=== PATIENT | female | born 1995 | race Caucasian/White ===

== ENCOUNTER 2024-12-17 11:49 | Emergency (ER) | payer SELFPAY ==
[~2024-12-17] VITALS: Ht 175.3 cm; Wt 68.0 kg
[2024-12-17 12:46] VITALS: PULSE 98; RESP 20; TEMP 98
[2024-12-17 13:15] LABS: BASOPHILS % 0.5 % (0.0-1.0); EOSINOPHILS % 0.6 % (0.0-6.0); LYMPHOCYTES % 23.4 % (18.0-39.1); MONOCYTES % 7.7 % (4.4-11.3); NEUTROPHILS % 67.6 % (38.7-80.0); RED CELL DISTRIBUTION WIDTH 13.3 % (11.7-14.4)
[2024-12-17 13:41] LABS: AMPHETAMINES SCREEN,URINE NEGATIVE (NEGATIVE); CANNABINOIDS SCREEN,URINE NEGATIVE (NEGATIVE); COCAINE SCREEN,URINE NEGATIVE (NEGATIVE); METHADONE SCREEN, URINE NEGATIVE (NEGATIVE); OPIATES SCREEN,URINE NEGATIVE (NEGATIVE)
[2024-12-17 13:42] LABS: LEUKOCYTE ESTERASE ,URINE NEGATIVE (NEGATIVE); PROTEIN,URINE DIPSTICK NEGATIVE (NEGATIVE); URINE UROBILINOGEN 0.2 mg/dL (0.2 - 1)
[2024-12-17 13:49] LABS: EST GLOMERULAR FILTRATION RATE 95 ML/MIN (>=60)
[2024-12-17] MEDS: SODIUM CHLORIDE 0.9% 1000ML 1,000 ML IV STA (13:49)
[2024-12-17] MEDS: ONDANSETRON HCL INJ 2MG/ML 2ML 2 MG/ML VIAL IV STA (13:49)
[2024-12-17 15:06] VITALS: BP 119/92; PULSE 81; RESP 17; O2SAT 100
== END 2024-12-17 14:50 | disposition home or self-care (01) ==
LOC: ER 12:40
DX: R19.7 Diarrhea, unspecified (principal); R11.0 Nausea; R25.1 Tremor, unspecified; F17.210 Nicotine dependence, cigarettes, uncomplicated
CPT/HCPCS: 36415; 80053; 80307; 81001; 82550; 83735; 84484; 85025; 99283; J2405; J2470; J7030